=== PATIENT | female | born 1960 | race Caucasian/White ===

== ENCOUNTER 2024-04-29 10:12 | Emergency (ER) | payer MEDICARE, OTHER, SELFPAY ==
[2024-04-29 10:14] VITALS: BP 153/82; PULSE 98; RESP 16; TEMP 36.3; O2SAT 97; BMI 25.3
--- NOTE | 2024-04-29 11:30 | CT_ITS ---
HISTORY: Injury/Pain. TECHNIQUE: Multiple axial images were obtained of the head without intravenous contrast. A radiation dose optimization technique was used for this scan. 246 images. COMPARISON: None. FINDINGS: BRAIN PARENCHYMA: Mild chronic small vessel ischemic gliosis. No acute intra-axial hemorrhage. CSF SPACES: Mild volume loss. No midline shift or other significant mass effect. No acute extra-axial hemorrhage. OTHER: Bifrontoparietal craniotomies. No significant air fluid levels in the paranasal sinuses or mastoid air cells. Unremarkable orbits. CT/Brain/Head without Contrast IMPRESSION: No acute intracranial process identified. Electronically Signed: Diya Willams MD at 12:36 EDT ,
--- NOTE | 2024-04-29 11:30 | RAD_ITS ---
HISTORY: fall, mechanical. TECHNIQUE: XR Hand Min 3 Views. COMPARISON: None. FINDINGS: BONES : No acute fracture or identified. JOINTS: No dislocation. Degenerative change with interphalangeal joint space narrowing. RAD/Hand Min 3 Views IMPRESSION: No acute fracture or dislocation identified in the left hand. Mild osteoarthritis. Electronically Signed: Diya Willams MD at 12:22 EDT ,
--- NOTE | 2024-04-29 11:30 | CT_ITS ---
HISTORY: INJURY/PAIN. TECHNIQUE: Helically acquired images were obtained of the cervical spine without contrast. 2D reformatted images were reviewed. A radiation dose optimization technique was used for this scan. 400 images. COMPARISON: None. FINDINGS: VERTEBRAE: Vertebral body heights maintained. Old nondisplaced fracture or prominent vascular groove of the left C4 foramen transversarium. ALIGNMENT: No significant anterior or posterior subluxation. Preservation of the cervical lordosis. INTERVERTEBRAL DISCS: Posterior disc bulge osteophyte complexes at C5-6 and C6-7. Mild central canal stenosis. Bilateral foraminal narrowing. SOFT TISSUES: No prevertebral soft tissue swelling. CT/Spine Cervical without Contras IMPRESSION: No evidence for acute fracture or dislocation in the cervical spine. Mild degenerative disc disease. Electronically Signed: Diya Willams MD at 12:44 EDT ,
--- NOTE | 2024-04-29 11:30 | CT_ITS ---
HISTORY: trauma, jaw pain TECHNIQUE: Helically acquired images of the facial bones were obtained without contrast. A radiation dose optimization technique was used for this scan. 469 images. COMPARISON: None. FINDINGS: OSSEOUS STRUCTURES: Nondisplaced fracture of the left mandibular condyle. No dislocation. SOFT TISSUES: No discrete fluid collections. PARANASAL SINUSES: Small right maxillary and left sphenoid sinus mucous retention cysts. VISUALIZED MASTOID AIR CELLS: Clear. ORBITAL CONTENTS: Both globes, extraocular muscles and retrobulbar fat appear unremarkable. CT/Sinus/Facial Bone IMPRESSION: Nondisplaced fracture of the left mandibular condyle. No dislocation. Electronically Signed: Diya Willams MD at 13:09 EDT ,
--- NOTE | 2024-04-29 11:31 | EDS_ITS ---
HPI History of Present Illness Chief Complaint: Fall Informant: patient Narrative Narrative: Patient is 63-year-old female with history of prior bilateral intracranial hemorrhage requiring surgical intervention and what sounds like trepanation presenting for evaluation after fall. Patient states he was walking into [employer] she tripped and fell. She tried to catch herself with her outstretched left hand but also struck the bottom of her chin. Denies any loss of consciousness. She states that she has a mild headache on the left side and her left side of her head feels numb. She feels that her teeth were rattled from it. She is not on any blood thinners. She does have a laceration to her chin. Denies any associated numbness or tingling of the extremities. [place] any weakness. Denies any significant neck pain. No other complaints or concerns reported at this time. Tetanus Immunization: <5 years [facility] Medical History Diabetes Diabetes HTN (hypertension) Home Medications ?Medication ?Instructions ?Recorded ?Last Taken ?Type cyclobenzaprine 10 mg tablet 10 mg PO TID PRN Muscle Spasm #20 04/29/24 Unknown Rx TABLETS oxycodone 5 mg tablet 5 mg PO Q6H PRN pain 3 days #12 04/29/24 Unknown Rx tabs Allergy/AdvReac Type Severity Reaction Status Date / Time Sulfa (Sulfonamide Allergy Severe Swelling Verified 04/29/24 10:14 Antibiotics) hydrocortisone (From Allergy Mild Swelling Verified 04/29/24 10:14 Cortizone-10) Social History Smoking Status: Unknown if ever smoked ROS ROS ED Constitutional Constitutional ED: Denies chills or fever(s) Eyes Eyes: Denies blurry vision or change in vision ENT ENT ED: Reports other Details: Jaw pain ; Denies rhinorrhea or sore throat Cardiovascular Cardiovascular: Denies chest pain Respiratory/Chest Respiratory/Chest: Denies cough or dyspnea Gastrointestinal Gastrointestinal: Denies nausea or vomiting Musculoskeletal Musculoskeletal: Reports other; Denies neck pain Integumentary Reports Abrasions Neurologic Neurologic: Reports headache(s); Denies paresthesias or weakness Psychiatric Psychiatric: Denies anxiety Hematologic/Lymphatic Hematologic/Lymphatic: Denies easy bleeding or easy bruising EXAM Physical Exam Const Vital Signs: 04/29/24 10:14 04/29/24 10:22 Temperature 97.4 F L Temperature Source Temporal Pulse Rate 98 Respiratory Rate 16 Respiratory Effort Normal Non-Labored Blood Pressure 153/82 H Blood Pressure Mean 105 Pulse Ox 97 Oxygen Delivery Method Room Air Room Air Positive well nourished and well developed General Appearance ED: well developed and NAD HEENT Reports TM's clear HEENT Narrative: No signs of basilar skull fracture. No obvious dental trauma. No malocclusion. Abrasion- bleeding to bottom of chin. Tympanic Membrane ED: Yes TM's clear Eyes PERRL Neck full ROM Neck Narrative: No step off sign General: Negative for tenderness Chest Wall inspection of chest normal and palpation of chest normal Resp normal respiratory effort and clear to auscultation bilaterally Cardio regular rhythm and no murmurs Rate: regular rate GI normal to inspection, nondistended, normoactive bowel sounds and non-tender Back/Spine normal to inspection and no thoracic nor lumbar tenderness Extremity normal to inspection and full ROM Extremity Narrative: Tenderness palpation of the left thenar eminence. Some overlying bruising. No scaphoid tenderness. No pain with axial stress of the wrist or hand. General Extremety ED: Negative for deformity or edema General Extremity: Negative for deformity or edema Neuro oriented x3, moves all extremities, no focal motor deficits and no sensory deficits noted [place] Coma Scale: document GCS findings Spontaneous Obeys Commands Oriented 15 Psych mental status grossly normal and thought process normal Skin Skin Narrative: Bleeding abrasion to the chin. Wound is cleansed and there does appear to be associated 1 cm slightly irregular full-thickness laceration in the area of the abrasion. PROC Procedures Lacerations chin: Length: 0.39 in Depth: Skin Shape: Linear Prep: Chlorhexadine Laceration repair: Local (LET) Number of Sutures/[place]: 1 Suture Information: Simple, 5-0 and - (Chromic Gut) MDM MDM MDM Narrative Medical decision making narrative: Patient is evaluated for injuries after fall. She has a laceration to her chin. Images obtained with traumatic process include CT of the brain, C-spine and facial bones and she is having a lot of jaw pain. No obvious malocclusion. Laceration repair performed. See procedure note. She does have a nondisplaced mandibular condyle fracture. This is nowhere near her abrasion I do not think this is an open fracture. Do think she requires antibiotics. Will be given follow-up with [facility] versus plastic surgery. Given the number for 2 clinics to follow-up with as needed. Is given a prescription for Flexeril suspect she will be quite sore tomorrow from her fall. Also given a prescription for oxycodone for pain. Counseled to not mix the Flexeril and oxycodone. She verbalized agreement understand this plan. Given return precautions. Discharged home in stable condition. Absorbable suture replace that she does not need to return for suture removal. Is amatory with a steady gait in the emergency room. Remains hemodynamically stable. Radiography Diagnostic Testing: Clinical Impression(s) from Imaging Studies Brain CT 04/29/24 11:30 IMPRESSION: No acute intracranial process identified. Electronically Signed: Diya Willams MD at 12:36 EDT , Cervical Spine CT 04/29/24 11:30 IMPRESSION: No evidence for acute fracture or dislocation in the cervical spine. Mild degenerative disc disease. Electronically Signed: Diya Willams MD at 12:44 EDT , Facial/Sinus 04/29/24 11:30 IMPRESSION: Nondisplaced fracture of the left mandibular condyle. No dislocation. Electronically Signed: Diya Willams MD at 13:09 EDT , Hand X-Ray 04/29/24 11:30 IMPRESSION: No acute fracture or dislocation identified in the left hand. Mild osteoarthritis. Electronically Signed: Diya Willams MD at 12:22 EDT , Discharge Plan Triage Chief Complaint: Fall ED Provider: Pallavi Alvarado Dx/Rx/DC Orders Clinical Impression: Chin laceration, Contusion of hand, left, Contusion of jaw, Mandibular body fracture Instructions: ED Hand Contusion, ED Facial Contusion, ED Laceration, All Closures, ED Jaw Fracture Prescriptions: New cyclobenzaprine 10 mg tablet 10 mg PO TID PRN (Reason: Muscle Spasm) Qty: 20 0RF oxycodone 5 mg tablet 5 mg PO Q6H PRN (Reason: pain) 3 Days Qty: 12 0RF Primary Care Provider: Daya Myers Referrals: Miguel Jenkins MD [Med Staff - Active Staff] - 5-7 Days Damon Hull DDS [Med Staff - Active Staff] - 5-7 Days NOT,DEFINED [Non-Staff] - Activity Restrictions/Additional Instructions: You may alternate ibuprofen and Tylenol as needed for pain. There is no fracture in your hand. The CT of your brain was normal. Your face CT did show a nondisplaced left mandibular condyle fracture. If you cannot get in with Dr. Hull we have a new plastic surgeon at the hospital he can also follow-up with. Given both further information. Do not mix the Flexeril with the pain medication (Oxycodone) Print Language: German Disposition Disposition: Home, Self Care
[2024-04-29] MEDS: Acetaminophen 325 MG Tablet 650 MG PO (12:24)
[2024-04-29] MEDS: Lidocaine/Epi/Tetracaine 50 ML 1 APPLIC TOPICAL (12:25)
== END 2024-04-29 13:59 | disposition home or self-care (01) ==
PROVIDERS: Emergency Provider Emergency Medicine; Visit Provider Emergency Medicine
DX: S01.81XA Laceration without foreign body of other part of head, initial encounter (principal); S02.612A Fracture of condylar process of left mandible, initial encounter for closed fracture; E11.9 Type 2 diabetes mellitus without complications; R51.9 Headache, unspecified; W01.0XXA Fall on same level from slipping, tripping and stumbling without subsequent striking against object, initial encounter; I10 Essential (primary) hypertension; S60.222A Contusion of left hand, initial encounter
CPT/HCPCS: 12011; 70450; 70486; 72125; 73130; 76377; 99282

== ENCOUNTER → 2024-06-01 | Outpatient (CLI) | payer MEDICARE, OTHER, SELFPAY ==
--- NOTE | 2024-06-01 08:25 | RAD_ITS ---
INDICATION: jaw fracture EXAMINATION/TECHNIQUE: X-RAY - XR Mandible Complete 6 Views COMPARISON: FINDINGS: SOFT TISSUES: No soft tissue swelling or gas. No radiopaque foreign body. BONES/TMJs: No fracture or subluxation. No sclerotic or destructive changes observed. DENTITION: No acute abnormality. RAD/Mandible Min 4 Views IMPRESSION: Negative. Electronically Signed: Cirilo Monroe DO at 18:44 EDT ,
== END | disposition home or self-care (01) ==
LOC: RAD 08:20
PROVIDERS: Referring Provider Surgery Plastic and Reconstructive Surgery; Visit Provider Surgery Plastic and Reconstructive Surgery
DX: S02.609A Fracture of mandible, unspecified, initial encounter for closed fracture (principal); X58.XXXA Exposure to other specified factors, initial encounter
CPT/HCPCS: 70110